=== PATIENT | male | born 1960 | race Caucasian/White ===

== ENCOUNTER 2025-08-02 18:09 | Emergency (ER) | payer MEDICARE, SELFPAY ==
[2025-08-02 18:28] VITALS: BP 141/85; PULSE 73; RESP 18; TEMP 37; O2SAT 94
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
[2025-08-02] MEDS: Lidocaine 1% Pres-Free W/EPI 1/200,000 30 ML VIAL (19:22)
== END 2025-08-02 19:24 | disposition home or self-care (01) ==
PROVIDERS: Emergency Provider Emergency Medicine
DX: S61.412A Laceration without foreign body of left hand, initial encounter (principal); Z79.01 Long term (current) use of anticoagulants; W23.0XXA Caught, crushed, jammed, or pinched between moving objects, initial encounter; Y92.39 Other specified sports and athletic area as the place of occurrence of the external cause
CPT/HCPCS: 12001; J2004